=== PATIENT | female | born 1955 | race Caucasian/White ===

== ENCOUNTER 2025-05-23 13:23 | Emergency (ER) | payer MEDICARE ==
[~2025-05-23] VITALS: Ht 162.6 cm; Wt 70.0 kg
[2025-05-23 13:25] VITALS: O2SAT 99
[2025-05-23] MEDS: SODIUM CHLORIDE 0.9% 1,000 ML IV ONE (14:28)
[2025-05-23 15:14] LABS: BASOPHILS % 0.2 % (0.0-2.0); EOSINOPHILS % 0.8 % (0.0-5.0); HEMATOCRIT. 37.9 % (36.0-48.0); HEMOGLOBIN. 12.6 g/dL (12.0-16.0); LYMPHOCYTES % 12.9 % (20.0-50.0); MEAN PLATELET VOLUME 8.0 fl (7.4-10.4); MONOCYTES % 4.8 % (2.0-8.0); NEUTROPHILS % 81.3 % (40.0-76.0); PLATELET 267 x1000/uL (130-400); RED BLOOD CELL COUNT 4.34 mill/uL (4.2-5.4); RED CELL DISTRIBUTION WIDTH 13.9 % (11.6-14.6)
[2025-05-23 15:27] LABS: CREATININE 0.6 mg/dL (0.6-1.0); UREA NITROGEN BLOOD 25 mg/dL (9-23)
[2025-05-23 15:29] LABS: ASPARTATE AMINOTRANSFERASE 16 IU/L (<34); BILIRUBIN DIRECT 0.2 mg/dL (<=3.0); BILIRUBIN TOTAL 0.5 mg/dL (0.1-1.0)
[2025-05-23 15:30] LABS: PROTEIN TOTAL 6.6 g/dL (6.0-8.3)
[2025-05-23 16:44] VITALS: BP 136/58; PULSE 74; RESP 14; TEMP 36.9; O2SAT 100
== END 2025-05-23 16:48 | disposition home or self-care (01) ==
LOC: ER 13:23
DX: E11.649 Type 2 diabetes mellitus with hypoglycemia without coma (principal); I10 Essential (primary) hypertension; F32.A Depression, unspecified; Z79.899 Other long term (current) drug therapy
CPT/HCPCS: 99284; 96360; 70450; 80076; 80048; 82962; 83690; 85025; 36415; 93005; J7030